=== PATIENT | male | born 1955 | race Caucasian/White ===

== ENCOUNTER 2023-09-18 08:51 | Outpatient (AMB) | payer MEDICARE, MEDICAID, SELFPAY ==
--- NOTE | 2023-09-18 08:52 | A.OFFVIS_ITS ---
Vital Signs 09/18/23 08:54 Height 5 ft 8 in Weight 171 lb 15.369 oz BMI 26.1 BP 125/78 Blood Pressure Location Lt brachial Position Sitting Pulse 81 Intake Visit Reasons: Gastroesophageal reflux disease (GERD) Intake Note: Zoya presents in the office as a new patient for GERD. CC: He states that he is here today for his acid reflux. Chronic constipation but he states it is managed these days. 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 Allergies Seasonal Allergies Allergy (Mild, Verified 09/18/23 08:54) Unknown HPI HPI Gastroesophageal reflux disease (GERD): Details: HPI 68 yr old m here for assessment for GERD He has had chronic GERD recently he noted that GERD was getting worse and needing increasing doses he eventually got to get esomeprazole 40 gm and is giving his 24 hr a day relief he has no nausea or vomiting no abdominal pain he has chronic constipation for years, managed with fiber OTC if he stresses v occ he sees blood He had egd and colonoscopy 2020-- no polyps, His sister had colon cancer aged 63 or so ROS: Constitutional : No Weight loss, No Fever, No Chills ENT/Mouth : No sore throat, No Rhinorrhea Eyes: No Swelling, No Redness Cardiovascular : No Chest Pain, No SOB, No Edema Respiratory : No Cough, No Sputum, No Wheezing Gastrointestinal : see HPI Genitourinary : NO Dysuria, No Urinary Frequency, No Hematuria, No Urgency Musculoskeletal : + joint pain, No Myalgias, No Joint Swelling Skin : No Skin Lesions, No rash Neuro : No Weakness, No Numbness, No Dizziness, No Headache Psych : No Anxiety/Panic, No Depression Heme/Lymph: No Bruising, No Lymphadenopathy Endocrine : No Polyuria, No Polydipsia All other systems reviewed and are negative. 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 VITAL SIGNS:see workflow HEENT: Nonicteric sclerae, PERRLA, EOMI. Oropharynx clear. Moist mucous membranes. Conjunctivae appear well perfused. No thyroid mass. CHEST: Chest wall is nontender. HEART: Regular rate and rhythm without murmurs. LUNGS: Clear to auscultation bilaterally. ABDOMEN: Soft, positive bowel sounds, nontender, no organomegaly.no flank tenderness SKIN: No rash, no excessive bruising, petechiae, or purpura. NEUROLOGIC: Cranial nerves II-XII intact without motor/sensory deficit. Psych: normal affect A/P: 1/ Chronic GERD< controlled with esomeprazole now, but needing higher doses 2/ chronic constipation PLAN: 1/ cont with PPI, advised to take MV and vit D supplement 2/ repeat EGD now due to worsening GERD< and colonoscopy due to FH of CRC 3/ add fiber and increase fluids to 2 L PFSH Surgical History (Updated 09/18/23 @ 08:54 by WALI Blank) Hx of colonoscopy Family History (Updated 09/18/23 @ 08:55 by WALI Blank) Sister Colon cancer Physical Exam Vital Signs: Last Vital Signs Pulse 81 09/18/23 08:54 BP 125/78 09/18/23 08:54 BMI result Body Mass Index 26.1 Assessment & Plan Assessment & Plan (1) GERD (gastroesophageal reflux disease): Code(s): K21.9 - Gastro-esophageal reflux disease without esophagitis Category: Medical Plan: see above (2) Family history of colorectal cancer: Code(s): Z80.0 - Family history of malignant neoplasm of digestive organs Category: Medical Plan: see above Coding Level of Care Code New Pt Level 4 (99552) Diagnoses GERD (gastroesophageal reflux disease) K21.9 Family history of colorectal cancer Z80.0
[2023-09-18 08:54] VITALS: BP 125/78; PULSE 81; BMI 26.1
== END 2023-09-18 09:35 | disposition home or self-care (01) ==
PROVIDERS: PCP Internal Medicine; Referring Provider Internal Medicine; Visit Provider Internal Medicine Gastroenterology
DX: K21.9 Gastro-esophageal reflux disease without esophagitis (principal); Z80.0 Family history of malignant neoplasm of digestive organs
CPT/HCPCS: 99204

== ENCOUNTER → 2023-09-18 08:51 | Outpatient (BNVA) | payer MEDICARE, MEDICAID, SELFPAY | PROVIDERS: PCP Internal Medicine; Visit Provider Internal Medicine Gastroenterology | DX: K21.9 Gastro-esophageal reflux disease without esophagitis (principal); Z80.0 Family history of malignant neoplasm of digestive organs | CPT/HCPCS: 99202 ==

== ENCOUNTER 2024-01-07 13:14 | Day surgery (SDC) | payer MEDICARE, MEDICAID, SELFPAY ==
--- NOTE | 2024-01-06 09:43 | HO.ANESPROP2 ---
Documented by User: Lily Meraz NP 01/06/24 09:43 HPI - Anesthesia Eval Consult details Narrative: 68yo M for Upper Endoscopy and Colonoscopy PMFSH Active Problems Active Problems: All Active Problems Family history of colorectal cancer (Acute) GERD (gastroesophageal reflux disease) (Acute) Past Medical History Medical History Hx of hemorrhoids Family History Family History Sister Colon cancer Surgical History Surgical History Hx of colonoscopy Social History Social History Patient Tobacco Use Status: Never used Tobacco Meds Allergies Allergy/AdvReac Type Severity Reaction Status Date / Time Seasonal Allergies Allergy Mild Unknown Verified 09/18/23 08:54 Home Medications ?Medication ?Instructions ?Recorded ?Confirmed ?Last Taken ?Type esomeprazole magnesium 40 mg 40 mg PO DAILY 09/18/23 Unknown History capsule,delayed release pravastatin 20 mg tablet 20 mg PO DAILY 09/18/23 Unknown History Assessment and Plan Assessment Anesthesia Assessment: Chart Reviewed Documented by User: Dinora Torres MD 01/07/24 14:42 PMFSH Past Medical History Medical History Hx of hemorrhoids Family History Family History Sister Colon cancer Surgical History Surgical History Hx of colonoscopy History of Problems with Anesthesia: No Social History Social History Patient Tobacco Use Status: Never used Tobacco Meds Allergies Allergy/AdvReac Type Severity Reaction Status Date / Time Seasonal Allergies Allergy Mild Unknown Verified 09/18/23 08:54 Home Medications ?Medication ?Instructions ?Recorded ?Confirmed ?Last Taken ?Type esomeprazole magnesium 40 mg 40 mg PO DAILY 09/18/23 Unknown History capsule,delayed release pravastatin 20 mg tablet 20 mg PO DAILY 09/18/23 Unknown History Exam Airway Mallampati Class: III TM Dist: >3cm Neck ROM: Full Loose/Missing/Broken Teeth: No Heart: RRR Lungs: CTA Assessment and Plan Assessment Anesthesia Assessment: Anesthesia Plan Discussed Final Anesthetic Review History of Problems with Anesthesia: No NPO: Yes ASA Class: II Final Preanesthetic Review: Meds/Allgs Chart Reviewed, Consent Obtained/Reviewed and Anes Risks/Benef Reviewed Patient Risk: Low Procedure Risk: Intermediate Anesthetic Plan Anesthetic Plan: MAC: Disposition: Standard PACU
[2024-01-06 13:37] VITALS: BMI 26.6
[2024-01-07 13:23] VITALS: BP 141/91; PULSE 83; RESP 18; TEMP 37; O2SAT 97; BMI 26.6
--- NOTE | 2024-01-07 13:32 | MHC.SHP ---
Pre-Procedural Eval Section A - 24 Hr Update-Section A only Date of Service: 01/07/24 Section B - Complete if H&P > 30 days Chief Complaint: hxmalignant neoplasm,gerd Relevant Family History (Specify if Yes): Yes Relevant Social History: None Present Medications: see Short Stay Collaborative assessment Medical History: Significant History (gerd, HLP) History of Previous Operations: Relevant previous surgery/procedure and date(s) (colonoscopy) Allergies: Allergies Allergy/AdvReac Type Severity Reaction Status Date / Time Seasonal Allergies Allergy Mild Unknown Verified 09/18/23 08:54 Review of Systems Sugical H&P ROS: Negative: Constitution, Cardiovascular, Respiratory, Neurological, Psychiatric, Hem-Onc, Allergic/Immunologic, Gastrointestinal, Genitourinary, Musculoskeletal, Integumentary, Endocrine and Eyes/Ears/Nose/Throat Exam Surgical H&P Exam: Normal: HEENT, Normal: Heart, Normal: Lungs, Normal: Extremities, Normal: Abdomen, Normal: Skin and Normal: Neurological Plan Diagnosis/Plan: Unchanged I have reviewed the history and physical and performed a pertinent physical examination on my patient. No changes have occurred unless specified. Time Spent With Patient Time: Total time managing care of this patient today ____ minutes.
[2024-01-07] MEDS: Lactated Ringers 1,000 ML 100 ML IVCONT (13:36)
--- NOTE | 2024-01-07 13:59 | HO.OPN-COLON ---
Colonoscopy Operative Note Operative Note Date of Service: 01/07/24 Narrative: Operative Information Procedure Description: EGD, Colonoscopy Indication: GERd, screening Anesthesia: MAC FLEXIBLE TRANSORAL UPPER GASTROINTESTINAL ENDOSCOPY AND COLONOSCOPY PROCEDURE NOTE UPPER ENDOSCOPY Consent: Indications for the procedure and potential complications of bleeding, perforation, reaction to medications and missed diagnosis were discussed with the patient and informed consent was obtained. Instrument: Olympus GIF H 190 J mid size upper endoscope Monitoring: Vital signs and clinical assessment, continuous EKG monitoring, Pulse oximetry, Carbon Dioxide monitoring and blood pressure monitoring were done throughout the procedure. Procedure: The patient was placed in the left lateral decubitis position and pre-procedure medications were administered and a bite block was placed. The endoscope was inserted into the mouth and advanced under direct vision to the third part of duodenum. A careful inspection was made as the upper endoscope was withdrawn including a retroflexed examination of the proximal stomach; Findings and interventions are described below. Findings: Larynx:normal Esophagus: GE junction at 40 cm, diaphragm hiatus at 40 cm, irregular Z line with small islands of salmon pink tissue, bx taken, also from distal and proximal esophagus Stomach: Patchy erythema and coarseness. Biopsies were obtained. Grade 2 flap valve on retroflexed examination of the cardia. Duodenum: Normal bulb and descending duodenum, bx taken Intervention: Biopsies as noted above, COLONOSCOPY Instrument: Olympus variable stiffness pediatric scope 190L Colonoscopy Monitoring: Vital signs and clinical assessment, continuous EKG monitoring, Pulse oximetry, Carbon Dioxide monitoring and blood pressure monitoring were done throughout the procedure. Colon withdrawal time was 16 minutes. Procedure: The patient was placed in the left lateral decubitis position and pre-procedure medications were administered. After a digital rectal examination of the ano-rectum, the video colonoscope was inserted into the rectum and advanced through the colon to the cecum/TI. The colonoscope was slowly withdrawn in a retrograde panoramic fashion and the colon mucosa was carefully examined including a retroflexed view of the rectum. Findings and interventions are described below. Procedure Difficulty:moderate Findings: Terminal Ileum-normal Cecum: 4-5 mm sessile polyp removed with cold forceps Ascending Colon: x 1 sessile polyp 8-9 mm removed with cold snare, x 1 flat polyp, granular type, injected w/ eleview and removed with cold snare Transverse Colon -normal Descending Colon:normal Sigmoid Colon: 6-8 mm sessile polyp removed with cold snare Rectum: Retroflexion with large internal hemorrhoids, grade I, 4-6 mm sessile polyp removed with cold forceps Anorectum - normal Colon preparation: [place] Bowel Preparation Scale Right colon; 2 Transverse colon: 3 Left colon; 3 (0 = Unprepared colon segment with mucosa not seen due to solid stool that cannot be cleared. 1 = Portion of mucosa of the colon segment seen, but other areas of the colon segment not well seen due to staining, residual stool and/or opaque liquid. 2 = Minor amount of residual staining, small fragments of stool and/or opaque liquid, but mucosa of colon segment seen well. 3 = Entire mucosa of colon segment seen well with no residual staining, small fragments of stool or opaque liquid) Impression and Post Procedure Diagnosis: Endoscopy Findings: gastritis possible dewitt esophagitis Colonoscopy Findings: colon polyps internal hemorrhoids Plan: Await Pathology results Repeat Colonoscopy in 2-3 years due to polyps or earlier if clinically indicated High fiber diet leaflet avoid straining at stool, epsom salts and sitz bath, anusol supps or cream if h pylori pos then treat Above findings were reviewed with the patient and relevant handouts were provided if indicated.
[2024-01-07 14:38] VITALS: BP 104/69; PULSE 75; RESP 18; TEMP 36.2; O2SAT 98
[2024-01-07 14:53] VITALS: BP 114/73; PULSE 74; RESP 16; O2SAT 98
[2024-01-07 15:02] VITALS: BP 113/73; PULSE 74; RESP 16; TEMP 36.3; O2SAT 98
== END 2024-01-07 15:46 | disposition home or self-care (01) ==
PROVIDERS: Visit Provider Internal Medicine Gastroenterology
PROC: (CPT 45385; principal; 2024-01-07 14:40)
DX: Z12.11 Encounter for screening for malignant neoplasm of colon (principal); Z80.0 Family history of malignant neoplasm of digestive organs; D12.0 Benign neoplasm of cecum; D12.2 Benign neoplasm of ascending colon; D12.5 Benign neoplasm of sigmoid colon; K62.1 Rectal polyp; K64.0 First degree hemorrhoids; K21.9 Gastro-esophageal reflux disease without esophagitis; K20.80 Other esophagitis without bleeding; K29.70 Gastritis, unspecified, without bleeding; K44.9 Diaphragmatic hernia without obstruction or gangrene; K22.89 Other specified disease of esophagus; E78.5 Hyperlipidemia, unspecified; Z79.899 Other long term (current) drug therapy
CPT/HCPCS: 45385; 45380; 45381; 43239; 88305; 88313; 88342; J2003; J2704

== ENCOUNTER → 2024-01-07 13:14 | Outpatient (BNV) | payer MEDICARE, MEDICAID, SELFPAY | PROVIDERS: Visit Provider Internal Medicine Gastroenterology | DX: Z12.11 Encounter for screening for malignant neoplasm of colon (principal); D12.0 Benign neoplasm of cecum; D12.2 Benign neoplasm of ascending colon; D12.5 Benign neoplasm of sigmoid colon; K62.1 Rectal polyp; K64.0 First degree hemorrhoids; K21.00 Gastro-esophageal reflux disease with esophagitis, without bleeding; K22.70 Barrett's esophagus without dysplasia; K29.70 Gastritis, unspecified, without bleeding | CPT/HCPCS: 43239; 45380; 45381; 45385 ==

== ENCOUNTER → 2024-01-25 11:19 | Outpatient (BNVA) | payer MEDICARE, MEDICAID, SELFPAY | PROVIDERS: Visit Provider Internal Medicine Gastroenterology ==

== ENCOUNTER → 2024-01-25 11:19 | Outpatient (AMB) | payer MEDICARE, MEDICAID, SELFPAY ==
--- NOTE | 2024-01-25 11:20 | A.OFFVIS_ITS ---
Intake Visit Reasons: Post op & 5 month follow up Intake Note: Zoya presents in the office as a post op and 5 month follow up. CC: States that he is just having appt for results to his procedure. Allergies Seasonal Allergies Allergy (Mild, Verified 01/25/24 11:20) Unknown HPI HPI Post op & 5 month follow up: Details: ====== 68 yr old m here for assessment for GERD RECAP: He has had chronic GERD recently he noted that GERD was getting worse and needing increasing doses he eventually got to get esomeprazole 40 gm and is giving his 24 hr a day relief he has no nausea or vomiting no abdominal pain he has chronic constipation for years, managed with fiber OTC if he stresses v occ he sees blood He had egd and colonoscopy 2020-- no polyps, His sister had colon cancer aged 63 or so EGD/colo 01/07/24 Endoscopy Findings: gastritis possible dewitt esophagitis Colonoscopy Findings: colon polyps internal hemorrhoids PATH: tubular adenomas, no dewitt INTERIM: he feels well he takes nexium but PPI do give him nausea normal appetite reviewed path with him A/P: 1/ GERD 2/ Colorectal polyps PLAN: 1/ Try dexilant 2/ repeat EGD and colonoscopy 2-3 yrs PFSH Medical History Hx of hemorrhoids Surgical History Hx of colonoscopy Family History Sister Colon cancer Social History Patient Tobacco Use Status: Never used Tobacco Telehealth Telehealth Telehealth Platform: [facility] Location of provider rendering services: practice address Location of patient: address on file Patient Identification confirmed using: Name, : Yes Telehealth method: voice only Patient verbally consented to treatment: Yes Patient verbally consented to billing insurance company: Yes Patient informed of any privacy concerns related to visit: Yes Minutes spent on Phone/Video with Pt.: 7 Assessment & Plan Assessment & Plan (1) Family history of colorectal cancer: Code(s): Z80.0 - Family history of malignant neoplasm of digestive organs Category: Medical Plan: see above (2) GERD (gastroesophageal reflux disease): Code(s): K21.9 - Gastro-esophageal reflux disease without esophagitis Category: Medical Plan: see above Medications: New dexlansoprazole (Dexilant) 30 mg PO DAILY 60 caps 1RF Coding Level of Care Code Tele Est Pt Level 3 (95103) Diagnoses Family history of colorectal cancer Z80.0 GERD (gastroesophageal reflux disease) K21.9
== END ==
LOC: HO.HGI 11:19
PROVIDERS: Visit Provider Internal Medicine Gastroenterology
DX: K21.9 Gastro-esophageal reflux disease without esophagitis (principal); Z80.0 Family history of malignant neoplasm of digestive organs
CPT/HCPCS: 99441